=== PATIENT | male | born 1995 | race Caucasian/White ===

== ENCOUNTER 2020-03-25 13:24 | Inpatient (IN) | payer OTHER ==
[2020-03-25 15:11] VITALS: BMI 28.1
--- NOTE | 2020-03-25 15:44 | HP ---
COWS - Scale Resting Pulse: 0= [place] 80 or Below Sweatin=Flushed/Facial Moisture Restless Observation: 1= Difficult to Sit Still Pupil Size: 0= Normal to Room Light Bone or Joint Aches: 2= Severe Diffuse Aches Runny Nose/ Eye Tearin= Runny Nose/Eyes GI Upset > 30mins: 2= Nausea/Diarrhea Tremor Observation: 2= Slight Tremor Visible Yawning Observation: 2= >3x During Session Anxiety or Irritability: 2=Irritable/Anxious Goose Flesh Skin: 3=Piloerection COWS Score: 18 CIWA Score Nausea/Vomitin-Mild Nausea/No Vomiting Muscle Tremors: 3 Anxiety: 3 Agitation: 3 Paroxysmal Sweats: 3 Orientation: 0-Oriented Tacttile Disturbances: 0-None Auditory Disturbances: 0-None Visual Disturbances: 0-None Headache: 2-Mild CIWA-Ar Total Score: 15 - Admission Criteria OASAS Guidelines: Admission for Medically Managed Detox: Requires at least one of the followin. CIWA greater than 12 2. Seizures within the past 24 hours 3. Delirium tremens within the past 24 hours 4. Hallucinations within the past 24 hours 5. Acute intervention needed for co occurring medical disorder 6. Acute intervention needed for co occurring psychiatric disorder 7. Severe withdrawal that cannot be handled at a lower level of care (continued vomiting, continued diarrhea, abnormal vital signs) requiring intravenous medication and/or fluids 8. Admitting History and Physical - Primary Care Physician PCP: Dr. Herrera - Admission Chief Complaint: I am here for detox and try to stay sober History of Present Illness: Pt is a 25yr old male with a history of opioid and fentanly withdrawals here for detox and treatment. 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 (last seizure 1month ago lack of benzo use) Cardiovascular: Yes: HTN Psych: Yes: Anxiety, Depression - Past Surgical History Past Surgical History: Yes: Hernia Repair - Smoking History Smoking history: Never smoked Have you smoked in the past 12 months: No - Alcohol/Substance Use Hx Alcohol Use: No History of Substance Use: reports: Prescription - Social History Usual Living Arrangement: Yes: With Parent ADL: Independent History of Recent Travel: No Admission ROS BHS - HPI Chief Complaint: I need help and detox for my addiction Allergies/Adverse Reactions: Allergies Allergy/AdvReac Type Severity Reaction Status Date / Time codeine Allergy Intermediate Vomiting Verified 03/25/20 15:00 History of Present Illness: pt is a 25yr old male with a history of heroin, fentanly dependence seeking detox for treatment. Exam Limitations: No Limitations - Ebola screening Have you traveled outside of the country in the last 21 days: No Have you had contact with anyone from an Ebola affected area: No Have you been sick,other than usual withdrawal symptoms: No Do you have a fever: No - Review of Systems Constitutional: Chills, Diaphoresis, Night Sweats EENT: reports: Tearing, Nose Congestion Respiratory: reports: No Symptoms reported Cardiac: reports: Syncope GI: reports: Diarrhea, Nausea, Poor Appetite, Poor Fluid Intake, Indigestion : reports: No Symptoms Reported Integumentary: reports: No Symptoms Reported Neuro: reports: Headache, Seizure (last seizure one month ago d/t benzo), Tingling Hematology: reports: No Symptoms Reported Psychiatric: reports: Judgement Intact, Mood/Affect Appropiate, Orientated x3, Agitated, Anxious Other Systems: Reviewed and Negative Patient History - Patient Medical History Hx Anemia: No Hx Asthma: No Hx Chronic Obstructive Pulmonary Disease (COPD): No Hx Cancer: No Hx Cardiac Disorders: No Hx Congestive Heart Failure: No Hx Hypertension: Yes (withdrawal related) Hx Hypercholesterolemia: No Hx Pacemaker: No HX Cerebrovascular Accident: No Hx Seizures: Yes (LAST SEIZURE 1 MONTH.) Hx Dementia: No Hx Diabetes: No Hx Gastrointestinal Disorders: No Hx Liver Disease: No Hx Genitourinary Disorders: No Hx Sexually Transmitted Disorders: No Hx Renal Disease (ESRD): No Hx Thyroid Disease: No Hx Human Immunodeficiency Virus (HIV): No Hx Hepatitis C: No Hx Depression: Yes Hx Suicide Attempt: No (pt denies) Hx Bipolar Disorder: No Hx Schizophrenia: No Other Medical History: anxiety - Patient Surgical History Past Surgical History: Yes Other Surgical History: BILATERAL INGUINAL HERNIA REPAIR - PPD History Previous Implant?: Yes Documented Results: Negative w/o proof Implanted On Prior R Admission?: No PPD to be Administered?: Yes - Reproductive History Patient is a Female of Child Bearing Age (11 -55 yrs old): No - Smoking Cessation Smoking history: Never smoked Have you smoked in the past 12 months: No Hx Chewing Tobacco Use: No Initiated information on smoking cessation: No - Substance & Tx. History Hx Alcohol Use: No Hx Substance Use: Yes Substance Use Type: Heroin, Opiates Hx Substance Use Treatment: Yes (5yrs ago last detox) - Substances abused Other Other (specify): FENTANYL Substance route: Inhalation Frequency: Daily Amount used: 1-2 GRAMS Age of first use: 17 Date of last use: 03/22/20 Alcohol Substance route: Oral Frequency: Daily Amount used: 18-20 BEERS/ OR 1 PINT AND UP Age of first use: 12 Date of last use: 03/20/20 Alprazolam (Xanax) Substance route: Oral Frequency: Daily Amount used: 10-12 MG Age of first use: 9 Date of last use: 03/20/20 Admission Physical Exam [facility] - Vital Signs Vital Signs: Vital Signs - 24 hr 03/25/20 15:04 Temperature 98.3 F Pulse Rate 66 Respiratory 19 Rate Blood Pressure 136/81 - Physical General Appearance: Yes: Appropriately Dressed, Moderate Distress, Tremorous, Irritable, Sweating, Anxious HEENTM: Yes: Hearing grossly Normal, Normal Voice, Nasal Congestion, Rhinorrhea Respiratory: Yes: Lungs Clear, Normal Breath Sounds, No Respiratory Distress Neck: Yes: No masses,lesions,Nodules Breast: Yes: Within Normal Limits Cardiology: Yes: Regular Rhythm, Regular Rate, S1, S2 Abdominal: Yes: Normal Bowel Sounds, Non Tender, Soft Genitourinary: Yes: Within Normal Limits Back: Yes: Normal Inspection Musculoskeletal: Yes: full range of Motion Extremities: Yes: Normal Capillary Refill, Normal Inspection, Non-Tender, Tremors Neurological: Yes: Fully Oriented, Alert, Normal Response Integumentary: Yes: Normal Color, Diaphoresis Lymphatic: Yes: Within Normal Limits - Diagnostic (1) Alcohol dependence with withdrawal, uncomplicated Current Visit: Yes Status: Chronic (2) Opioid dependence with withdrawal Current Visit: Yes Status: Chronic (3) 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
[2020-03-25] MEDS ORDERED: BISMUTH SUBSALICYLATE 524 MG/30 ML UD PO PRN (15:48)
[2020-03-25] MEDS ORDERED: P-EPHED 60MG/TRIPROLIDI 2.5MG TABLET PO PRN (15:48)
[2020-03-25] MEDS ORDERED: ONDANSETRON *ODT* 4 MG TABLET SL PRN (15:48)
[2020-03-25] MEDS ORDERED: MENTHOL/PHENOL 1 EACH UD MM PRN (15:48)
[2020-03-25] MEDS ORDERED: IBUPROFEN 400 MG TABLET (FP) PO PRN (15:48)
[2020-03-25] MEDS ORDERED: MAGNESIUM CITRATE 300 ML BOTTLE PO PRN (15:48)
[2020-03-25] MEDS ORDERED: ACETAMINOPHEN 325 MG TABLET (FP) PO PRN (15:48)
[2020-03-25] MEDS ORDERED: MAGNESIUM HYDROX 2400MG/30ML ORAL SUSPENSION 30 ML CUP PO PRN (15:48)
[2020-03-25] MEDS ORDERED: MAG HYDROX/AL HYDROX/SIMETH 30 ML UNIT-DOSE CUP PO PRN (15:48)
[2020-03-25] MEDS ORDERED: cloNIDine HCL 0.1 MG TABLET PO PRN (15:48)
[2020-03-25] MEDS ORDERED: diazePAM 5 MG TABLET PO ONE (16:00)
[2020-03-25] MEDS ORDERED: METHADONE HCL 10 MG TABLET (FOR DETOX USE ONLY) PO ONE (16:00)
[2020-03-25] MEDS: METHOCARBAMOL 500 MG TABLET PO PRN (17:53)
[2020-03-25] MEDS: diazePAM 5 MG TABLET PO PRN (20:30)
[2020-03-25] MEDS: hydrOXYzine PAMOATE 25 MG CAPSULE (FP) PO PRN (20:30)
[2020-03-25] MEDS: THIAMINE HCL 100 MG TABLET (FP) PO SCH (21:54)
[2020-03-25] MEDS: MELATONIN 5 MG TABLETS PO SCH (21:55)
[2020-03-25] MEDS: diazePAM 5 MG TABLET PO SCH (21:56)
[2020-03-26] MEDS ORDERED: MASKS NR ONE (05:23)
[2020-03-26] MEDS: diazePAM 5 MG TABLET PO SCH ×3 (05:24→22:00)
[2020-03-26] MEDS ORDERED: METHADONE HCL 5 MG TABLET (FOR DETOX USE ONLY) ONE (08:56)
[2020-03-26] MEDS ORDERED: METHADONE HCL 10 MG TABLET (FOR DETOX USE ONLY) ONE (08:56)
[2020-03-26] MEDS ORDERED: METHADONE (DETOX) 20 MG, METHADONE (DETOX) 5 MG PO ONE (10:00)
[2020-03-26] MEDS: PRENATAL VITAMINS W/ FOLIC ACID TABLET (FP) PO SCH (10:33)
[2020-03-26] MEDS: hydrOXYzine PAMOATE 25 MG CAPSULE (FP) PO PRN ×3 (10:33→22:00)
[2020-03-26] MEDS: diazePAM 5 MG TABLET PO PRN ×2 (10:35→18:39)
[2020-03-26 10:37] LABS: HEMOGLOBIN 15.5 GM/dL (11.7-16.9); MCH 26.8 pg (25.7-33.7); MCHC 33.8 g/dl (32.0-35.9); MEAN CELL VOLUME 79.2 fl (80-96); PLATELET COUNT 466 K/MM3 (134-434); RDW 15.3 % (11.9-15.9); WHITE BLOOD COUNT 10.2 K/mm3 (4.0-10.0)
[2020-03-26 10:52] LABS: ALBUMIN 3.5 g/dl (3.4-5.0); BILIRUBIN,TOTAL 0.9 mg/dL (0.2-1); BLOOD UREA NITROGEN 15.7 mg/dL (7-18); CALCIUM 9.3 mg/dL (8.5-10.1); CREATININE 1.4 mg/dL (0.55-1.3); POTASSIUM 4.7 mmol/L (3.5-5.1); TOT PROT 7.7 g/dl (6.4-8.2)
[2020-03-26 10:53] LABS: SICKLE CELL SCREEN NEGATIVE (NEGATIVE)
--- NOTE | 2020-03-26 11:35 | CONSULT ---
[facility] Psychiatric Consult - Data Date of interview: 03/26/20 Admission source: [facility] Identifying data: Patient is a 25 year old single Citizen Of [place] male, without children, unemployed, and resides with grandmother. This is patient's first admission to detox at [facility]. Patient admitted to for opiate and benzodiazepine dependence. Substance Abuse History: - Smoking Cessation. Smoking history: Never smoked. Have you smoked in the past 12 months: No. Hx Chewing Tobacco Use: No. Initiated information on smoking cessation: No. - Substance & Tx. History. Hx Alcohol Use: No. Hx Substance Use: Yes. Substance Use Type: Heroin, Opiates. Hx Substance Use Treatment: Yes (5yrs ago last detox). - Substances abused. Other. Other (specify): FENTANYL. Substance route: Inhalation. Frequency: Daily. Amount used: 1-2 GRAMS. Age of first use: 17. Date of last use: 03/22/20. Alcohol. Substance route: Oral. Frequency: Daily. Amount used: 18-20 BEERS/ OR 1 PINT AND UP. Age of first use: 12. Date of last use: . Alprazolam (Xanax). Substance route: Oral. Frequency: Daily. Amount used: 10-12 MG. Age of first use: 9. Date of last use: 03/20/20 Medical History: Hernia repair, hypertension, seizure (withdrawal from benzo) Psychiatric History: Patient states that his first psychiatric contact was at 7 years of age at an outpatient clinic in [place], [place] due to behaviorial issues. 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 Patient reports being prescribed klonopin + other psychotropic agents until the age of 17. As an adult he reports receiving outpatient psychiatric care at [facility]. Reports most recently seeing the psychiatist two months ago and claims that he is prescribed klonopin 2mg BID + Xanac 4mg daily PRN + Wellbutrin 300mg XL daily + Adderall 30mg daily. Mr. Mane reports a diagnosis of ADHD + MDD + Anxiety disorder. No reported history of psychiatric hospitalizations and suicide attempt. At present, Mr. Mane is not interested in resuming psychotropic medications. States that he has been off medications for several weeks. Physical/Sexual Abuse/Trauma History: denies. Mental Status Exam - Mental Status Exam Alert and Oriented to: Time, Place, Person Cognitive Function: Good Patient Appearance: Well Groomed Mood: Hopeful Affect: Appropriate Patient Behavior: Appropriate, Cooperative Speech Pattern: Appropriate Voice Loudness: Normal Thought Process: Goal Oriented Hallucinations: Denies Suicidal Ideation: Denies Homicidal Ideation: Denies Insight/Judgement: Poor Sleep: Fair Appetite: Fair Muscle strength/Tone: Normal Gait/Station: Normal Psychiatric Findings - Problem List ([place] 1, 2,3) (1) Anxiety disorder Current Visit: No Status: Chronic (2) ADHD (attention deficit hyperactivity disorder) Current Visit: No Status: Chronic (3) Alcohol dependence with withdrawal, uncomplicated Current Visit: Yes Status: Acute (4) Opioid dependence with withdrawal Current Visit: Yes Status: Acute (5) Sedative withdrawal without complication Current Visit: Yes Status: Acute - Initial Treatment Plan Initial Treatment Plan: Psychoeducation provided. Detoxification in progress. Observation.
--- NOTE | 2020-03-26 16:57 | EKG ---
Test Reason : Blood Pressure : / mmHG Vent. Rate : 052 BPM Atrial Rate : 052 BPM P-R Int : 104 ms QRS Dur : 092 ms QT Int : 418 ms P-R-T Axes : 057 093 040 degrees QTc Int : 388 ms SINUS BRADYCARDIA WITH SHORT SD RIGHTWARD AXIS BORDERLINE ECG NO PREVIOUS ECGS AVAILABLE Confirmed by TOOTIE PRECIADO, VITOR ([id number]) on 03/26/2020 4:57:37 PM Referred By: Confirmed By:VITOR SOMMERS MD
--- NOTE | 2020-03-26 17:15 | PN ---
[facility] CIWA - CIWA Score Nausea/Vomitin-Mild Nausea/No Vomiting Muscle Tremors: 3 Anxiety: 3 Agitation: 3 Paroxysmal Sweats: 1-Minimal Palms Moist Orientation: 0-Oriented Tacttile Disturbances: 1-Very Mild Itch/Numbness Auditory Disturbances: 0-None Visual Disturbances: 0-None Headache: 1-Very Mild CIWA-Ar Total Score: 13 [facility]HS COWS - Scale Resting Pulse: 0= [place] 80 or Below Sweatin= No chills or Flushing Restless Observation: 1= Difficult to Sit Still Pupil Size: 1= Pupils >than Normal Bone or Joint Aches: 2= Severe Diffuse Aches Runny Nose/ Eye Tearin= Runny Nose/Eyes GI Upset > 30mins: 2= Nausea/Diarrhea Tremor Observation of Outstretched Hands: 2= Slight Tremor Visible Yawning Observation: 1= 1-2x During Session Anxiety or Irritability: 2=Irritable/Anxious Goose Flesh Skin: 0=Smooth Skin COWS Score: 13 [facility] Progress Note (SOAP) Subjective: alert,irritable,anxious,interrupted sleep,tremor,pain in the body and back,nausea Objective: 03/26/20 17:13 Laboratory Last Values WBC 10.2 K/mm3 (4.0-10.0) H 03/26/20 08:00 RBC 5.80 M/mm3 (4.00-5.60) H 03/26/20 08:00 Hgb 15.5 GM/dL (11.7-16.9) 03/26/20 08:00 Hct 46.0 % (35.4-49) 03/26/20 08:00 MCV 79.2 fl (80-96) L 03/26/20 08:00 MCH 26.8 pg (25.7-33.7) 03/26/20 08:00 MCHC 33.8 g/dl (32.0-35.9) 03/26/20 08:00 RDW 15.3 % (11.9-15.9) 03/26/20 08:00 Plt Count 466 K/MM3 (134-434) H 03/26/20 08:00 MPV 8.0 fl (7.5-11.1) 03/26/20 08:00 Sickle Cell Screen Negative (NEGATIVE) 03/26/20 08:00 Sodium 138 mmol/L (136-145) 03/26/20 08:00 Potassium 4.7 mmol/L (3.5-5.1) 03/26/20 08:00 Chloride 100 mmol/L (98-107) 03/26/20 08:00 Carbon Dioxide 31 mmol/L (21-32) 03/26/20 08:00 Anion Gap 8 MMOL/L (8-16) 03/26/20 08:00 BUN 15.7 mg/dL (7-18) 03/26/20 08:00 Creatinine 1.4 mg/dL (0.55-1.3) H 03/26/20 08:00 Est GFR (CKD-EPI)AfAm 79.80 03/26/20 08:00 Est GFR (CKD-EPI)NonAf 68.85 03/26/20 08:00 Random Glucose 108 mg/dL (74-106) H 03/26/20 08:00 Calcium 9.3 mg/dL (8.5-10.1) 03/26/20 08:00 Total Bilirubin 0.9 mg/dL (0.2-1) 03/26/20 08:00 AST 49 U/L (15-37) H 03/26/20 08:00 ALT 94 U/L (13-61) H 03/26/20 08:00 Alkaline Phosphatase 68 U/L (45-117) 03/26/20 08:00 Total Protein 7.7 g/dl (6.4-8.2) 03/26/20 08:00 Albumin 3.5 g/dl (3.4-5.0) 03/26/20 08:00 Syphilis Serology Non-reactive (NONREACTIVE) 03/26/20 08:00 Assessment: 03/26/20 17:14 withdrawal symptom Plan: continue detox methadone and valium
[2020-03-26] MEDS: METHOCARBAMOL 500 MG TABLET PO PRN (18:39)
[2020-03-26] MEDS: MELATONIN 5 MG TABLETS PO SCH (22:00)
[2020-03-26] MEDS: THIAMINE HCL 100 MG TABLET (FP) PO SCH (22:00)
[2020-03-27] MEDS: diazePAM 5 MG TABLET PO SCH ×2 (05:31→17:55)
[2020-03-27] MEDS ORDERED: METHADONE HCL 10 MG TABLET (FOR DETOX USE ONLY) PO ONE (10:00)
[2020-03-27] MEDS: PRENATAL VITAMINS W/ FOLIC ACID TABLET (FP) PO SCH (10:36)
[2020-03-27] MEDS: diazePAM 5 MG TABLET PO PRN ×3 (10:40→22:50)
[2020-03-27] MEDS: METHOCARBAMOL 500 MG TABLET PO PRN ×2 (10:40→17:58)
--- NOTE | 2020-03-27 14:03 | PN ---
[facility] CIWA - CIWA Score Nausea/Vomitin-Mild Nausea/No Vomiting Muscle Tremors: 2 Anxiety: 2 Agitation: 2 Paroxysmal Sweats: No Perspiration Orientation: 0-Oriented Tacttile Disturbances: 1-Very Mild Itch/Numbness Auditory Disturbances: 0-None Visual Disturbances: 0-None Headache: 2-Mild CIWA-Ar Total Score: 10 [facility]HS COWS - Scale Resting Pulse: 1= [place] 81-100 Sweatin= No chills or Flushing Restless Observation: 0= Sits Still Pupil Size: 1= Pupils >than Normal Bone or Joint Aches: 2= Severe Diffuse Aches Runny Nose/ Eye Tearin= Runny Nose/Eyes GI Upset > 30mins: 2= Nausea/Diarrhea Tremor Observation of Outstretched Hands: 2= Slight Tremor Visible Yawning Observation: 0= None Anxiety or Irritability: 2=Irritable/Anxious Goose Flesh Skin: 0=Smooth Skin COWS Score: 12 [facility] Progress Note (SOAP) Subjective: alert,irritable,anxious,interrupted sleep,nusea,tremor,pain in the body and back Objective: 03/27/20 16:12 Vital Signs Temperature 97.1 F L 03/27/20 12:37 Pulse Rate 65 03/27/20 12:37 Respiratory Rate 20 03/27/20 12:37 Blood Pressure 136/82 03/27/20 12:37 O2 Sat by Pulse Oximetry (%) 98 03/27/20 12:37 Assessment: 03/27/20 16:12 withdrawal symptom Plan: continue detox methadone and valium regimen,encourage oral fluid
[2020-03-27] MEDS: hydrOXYzine PAMOATE 25 MG CAPSULE (FP) PO PRN ×2 (17:58→22:51)
[2020-03-27] MEDS: THIAMINE HCL 100 MG TABLET (FP) PO SCH (22:47)
[2020-03-27] MEDS: MELATONIN 5 MG TABLETS PO SCH (22:47)
[2020-03-28] MEDS ORDERED: diazePAM 5 MG TABLET PO ONE (06:00)
--- NOTE | 2020-03-28 09:47 | PN ---
[facility] CIWA - CIWA Score Nausea/Vomitin-No Nausea/No Vomiting Muscle Tremors: None Anxiety: 2 Agitation: 0-Normal Activity Paroxysmal Sweats: 3 Orientation: 0-Oriented Tacttile Disturbances: 0-None Auditory Disturbances: 0-None Visual Disturbances: 0-None Headache: 0-None Present CIWA-Ar Total Score: 5 BHS COWS - Scale Resting Pulse: 0= [place] 80 or Below Sweatin= Chills/Flushing Restless Observation: 1= Difficult to Sit Still Pupil Size: 0= Normal to Room Light Bone or Joint Aches: 2= Severe Diffuse Aches Runny Nose/ Eye Tearin= None GI Upset > 30mins: 0= None Tremor Observation of Outstretched Hands: 0= None Yawning Observation: 1= 1-2x During Session Anxiety or Irritability: 2=Irritable/Anxious Goose Flesh Skin: 0=Smooth Skin COWS Score: 7 S Progress Note (SOAP) Subjective: c/o sweats, anxiety, muscle aches, and irritability. Objective: Vital Signs 03/28/20 03/28/20 06:35 08:43 Temperature 97.7 F 97.3 F L Pulse Rate 51 L 54 L Respiratory 18 17 Rate Blood Pressure 111/72 132/85 O2 Sat by Pulse 100 97 Oximetry (%) Laboratory Last Values WBC 10.2 K/mm3 (4.0-10.0) H 03/26/20 08:00 RBC 5.80 M/mm3 (4.00-5.60) H 03/26/20 08:00 Hgb 15.5 GM/dL (11.7-16.9) 03/26/20 08:00 Hct 46.0 % (35.4-49) 03/26/20 08:00 MCV 79.2 fl (80-96) L 03/26/20 08:00 MCH 26.8 pg (25.7-33.7) 03/26/20 08:00 MCHC 33.8 g/dl (32.0-35.9) 03/26/20 08:00 RDW 15.3 % (11.9-15.9) 03/26/20 08:00 Plt Count 466 K/MM3 (134-434) H 03/26/20 08:00 MPV 8.0 fl (7.5-11.1) 03/26/20 08:00 Sickle Cell Screen Negative (NEGATIVE) 03/26/20 08:00 Sodium 138 mmol/L (136-145) 03/26/20 08:00 Potassium 4.7 mmol/L (3.5-5.1) 03/26/20 08:00 Chloride 100 mmol/L (98-107) 03/26/20 08:00 Carbon Dioxide 31 mmol/L (21-32) 03/26/20 08:00 Anion Gap 8 MMOL/L (8-16) 03/26/20 08:00 BUN 15.7 mg/dL (7-18) 03/26/20 08:00 Creatinine 1.4 mg/dL (0.55-1.3) H 03/26/20 08:00 Est GFR (CKD-EPI)AfAm 79.80 03/26/20 08:00 Est GFR (CKD-EPI)NonAf 68.85 03/26/20 08:00 Random Glucose 108 mg/dL (74-106) H 03/26/20 08:00 Calcium 9.3 mg/dL (8.5-10.1) 03/26/20 08:00 Total Bilirubin 0.9 mg/dL (0.2-1) 03/26/20 08:00 AST 49 U/L (15-37) H 03/26/20 08:00 ALT 94 U/L (13-61) H 03/26/20 08:00 Alkaline Phosphatase 68 U/L (45-117) 03/26/20 08:00 Total Protein 7.7 g/dl (6.4-8.2) 03/26/20 08:00 Albumin 3.5 g/dl (3.4-5.0) 03/26/20 08:00 Syphilis Serology Non-reactive (NONREACTIVE) 03/26/20 08:00 COVID-19 (SELAM) Not detected (Not Detected) 03/26/20 08:40 Labs noted. Assessment: 03/28/20 09:47 AOX3, in no acute respiratory distress. Full ROM, ambulating in the unit. Withdrawal symptoms. Plan: continue detox.
[2020-03-28] MEDS ORDERED: METHADONE HCL 5 MG TABLET (FOR DETOX USE ONLY) ONE (09:49)
[2020-03-28] MEDS ORDERED: METHADONE HCL 10 MG TABLET (FOR DETOX USE ONLY) ONE (09:49)
[2020-03-28] MEDS ORDERED: METHADONE (DETOX) 10 MG, METHADONE (DETOX) 5 MG PO ONE (10:00)
[2020-03-28] MEDS: PRENATAL VITAMINS W/ FOLIC ACID TABLET (FP) PO SCH (10:43)
[2020-03-28] MEDS: ACETAMINOPHEN 325 MG TABLET (FP) PO PRN (10:45)
[2020-03-28] MEDS: METHOCARBAMOL 500 MG TABLET PO PRN ×2 (10:45→19:03)
[2020-03-28] MEDS: hydrOXYzine PAMOATE 25 MG CAPSULE (FP) PO PRN (19:02)
[2020-03-28] MEDS: MELATONIN 5 MG TABLETS PO SCH (22:54)
[2020-03-28] MEDS: THIAMINE HCL 100 MG TABLET (FP) PO SCH (22:54)
[2020-03-29] MEDS ORDERED: METHADONE HCL 10 MG TABLET (FOR DETOX USE ONLY) PO ONE (10:00)
--- NOTE | 2020-03-29 10:13 | PN ---
[facility] CIWA - CIWA Score Nausea/Vomitin-Mild Nausea/No Vomiting Muscle Tremors: 1-None Visible, but [place] Anxiety: 1-Mildly Anxious Agitation: 0-Normal Activity Paroxysmal Sweats: No Perspiration Orientation: 0-Oriented Tacttile Disturbances: 0-None Auditory Disturbances: 0-None Visual Disturbances: 0-None Headache: 1-Very Mild CIWA-Ar Total Score: 4 S COWS - Scale Resting Pulse: 2= [place] 101-120 Sweatin= No chills or Flushing Restless Observation: 0= Sits Still Pupil Size: 0= Normal to Room Light Bone or Joint Aches: 0= None Runny Nose/ Eye Tearin= None GI Upset > 30mins: 0= None Tremor Observation of Outstretched Hands: 1= Tremor [place], Not Seen Yawning Observation: 0= None Anxiety or Irritability: 1=Feels Anxious/Irritable Goose Flesh Skin: 0=Smooth Skin COWS Score: 4 S Progress Note (SOAP) Subjective: Patient Name: Jj Mane Date: 1995 Address: [address] [place] [address] Sex: Male Rx Written Rx Dispensed Drug Quantity Days Supply Prescriber Name Payment Method Dispenser 01/28/2020 03/01/2020 buprenorphine 8 mg tablet sl 60 30 Schwartz, [place] Medicaid [facility] #[id number] 02/25/2020 02/25/2020 clonazepam 1 mg tablet 60 30 Schwartz, [place] Medicaid [facility] #[id number] 02/25/2020 02/25/2020 alprazolam 2 mg tablet 30 30 Schwartz, [place] Medicaid [facility] #[id number] 01/28/2020 02/20/2020 dextroamp-amphetamin 10 mg tab 90 30 Schwartz, [place] Medicaid [facility] #[id number] 01/28/2020 01/28/2020 clonazepam 1 mg tablet 60 30 Schwartz, [place] Medicaid [facility] #[id number] 01/28/2020 01/28/2020 alprazolam 2 mg tablet 30 30 Schwartz, [place] [facility] #[id number] 01/06/2020 01/23/2020 buprenorphine 8 mg tablet sl 60 30 Schwartz, [place] Medicaid [facility] #[id number] 01/06/2020 01/23/2020 dextroamp-amphetamin 10 mg tab 90 30 Schwartz, [place] Medicaid [facility] #[id number] 01/06/2020 01/19/2020 alprazolam 1 mg tablet 45 30 Schwartz, [place] Medicaid [facility] #[id number] 01/06/2020 01/09/2020 clonazepam 2 mg tablet 60 30 Schwartz, [place] Medicaid [facility] #[id number] 12/09/2019 12/25/2019 buprenorphine 8 mg tablet sl 60 30 Schwartz, [place] Medicaid [facility] #[id number] 12/09/2019 12/25/2019 dextroamp-amphetamin 10 mg tab 90 30 Schwartz, [place] Medicaid [facility] #[id number] 12/09/2019 12/20/2019 alprazolam 1 mg tablet 45 30 Schwartz, [place] Medicaid [facility] #[id number] 12/09/2019 12/11/2019 clonazepam 2 mg tablet 60 30 Schwartz, [place] Medicaid [facility] #[id number] 11/11/2019 11/28/2019 dextroamp-amphetamin 10 mg tab 90 30 Schwartz, [place] Medicaid [facility] #[id number] 11/11/2019 11/27/2019 buprenorphine 8 mg tablet sl 60 30 Schwartz, [place] Medicaid [facility] #[id number] 11/11/2019 11/20/2019 alprazolam 1 mg tablet 45 30 Schwartz, [place] [facility] #[id number] 11/11/2019 11/14/2019 clonazepam 2 mg tablet 60 30 Schwartz, [place] [facility] #[id number] 10/18/2019 10/28/2019 dextroamp-amphetamin 10 mg tab 90 30 Schwartz, [place] [facility] #[id number] 10/18/2019 10/23/2019 buprenorphine 8 mg tablet sl 60 30 Schwartz, [place] [facility] #[id number] 10/18/2019 10/22/2019 alprazolam 1 mg tablet 45 30 Schwartz, [place] [facility] #[id number] 10/18/2019 10/18/2019 clonazepam 2 mg tablet 60 30 Schwartz, [place] [facility] #[id number] 09/25/2019 09/27/2019 dextroamp-amphetamin 10 mg tab 90 30 [facility] #[id number] 09/25/2019 09/25/2019 alprazolam 1 mg tablet 120 30 [facility] #[id number] 09/25/2019 09/25/2019 clonazepam 2 mg tablet 12 6 [facility] #[id number] 09/25/2019 09/25/2019 buprenorphine 8 mg tablet sl 60 30 [facility] #[id number] 08/23/2019 08/29/2019 alprazolam 1 mg tablet 120 30 [facility] #[id number] 08/26/2019 08/27/2019 dextroamp-amphetamin 10 mg tab 90 30 [facility] #[id number] 08/23/2019 08/26/2019 buprenorphine 8 mg tablet sl 60 30 [facility] #[id number] 07/23/2019 08/02/2019 alprazolam 1 mg tablet 120 30 Schwartz, [place] [facility] #[id number] 07/23/2019 07/26/2019 dextroamp-amphetamin 10 mg tab 120 30 Schwartz, [place] [facility] #[id number] 07/23/2019 07/24/2019 buprenorphine 8 mg tablet sl 60 30 Schwartz, [place] [facility] #[id number] 06/27/2019 07/03/2019 alprazolam 1 mg tablet 120 30 Schwartz, [place] [facility] #[id number] 06/27/2019 06/29/2019 dextroamp-amphetamin 10 mg tab 120 30 Schwartz, [place] [facility] #[id number] 05/28/2019 06/13/2019 buprenorphine 8 mg tablet sl 60 30 Schwartz, [place] [facility] #[id number] 05/28/2019 06/07/2019 dextroamp-amphetamin 10 mg tab 100 25 Schwartz, [place] [facility] #[id number] 05/28/2019 06/03/2019 alprazolam 1 mg tablet 120 30 Schwartz, [place] [facility] #[id number] 05/02/2019 05/16/2019 buprenorphine 8 mg tablet sl 60 30 Schwartz, [place] [facility] #[id number] 05/02/2019 05/11/2019 dextroamp-amphetamin 10 mg tab 120 30 Schwartz, [place] [facility] #[id number] 05/02/2019 05/04/2019 alprazolam 1 mg tablet 120 30 Schwartz, [place] [facility] #[id number] 04/05/2019 04/17/2019 buprenorphine 8 mg tablet sl 60 30 Schwartz, [place] [facility] #[id number] 04/11/2019 04/11/2019 dextroamp-amphetamin 10 mg tab 120 30 Schwartz, [place] [facility] #[id number] 04/06/2019 04/06/2019 dextroamp-amphetamin 10 mg tab 20 5 Schwartz, [place] [facility] #[id number] 04/05/2019 04/05/2019 alprazolam 1 mg tablet 120 30 Schwartz, [place] [facility] #[id number] Top of Form 1 Bottom of Form 1 Report Suspicious Activity Send Questions/Comments Substance Use Disorder Treatment Click the Report Suspicious Activity button to report information related to controlled substance suspicious activity to the [employer]. Click the Send Questions/Comments button to send questions about this report to the [employer], or call . Click the Substance Use Disorder Treatment button to go to the Office of Addiction Services and Supports website, www.[place].gov or call 1-507.712.3623. 2017 [facility] Department of Health -[facility] [employer] 03/29/2020 10:08 . 25 years old male was admitted on 03/25/20 for alcohol benzo opiate withdrawal sx management treating with valium and methadone regiments requests to be seen by a psychiatrist for clonopine mr mane was receiving monthly xanax 2 mg po od last filled 02/25/20 clonopine 1 mg po bid last filled 02/25/20 and suboxone 8-2mg po bid last filled 01/28/20 mr mane prefers returning to the program and continues xanax klonopin suboxone Objective: 03/29/20 10:18 Vital Signs - 24 hr 03/28/20 03/28/20 03/28/20 12:40 16:35 20:38 Temperature 98.3 F 97.4 F L 97.3 F L Pulse Rate 66 56 L 64 Respiratory 18 16 18 Rate Blood Pressure 123/76 137/78 124/77 O2 Sat by Pulse 100 99 Oximetry (%) 03/29/20 03/29/20 03/29/20 05:17 07:02 08:52 Temperature 97.1 F L 97.1 F L Pulse Rate 50 L 66 103 H Respiratory 16 16 20 Rate Blood Pressure 85/47 L 123/77 136/63 O2 Sat by Pulse 99 Oximetry (%) Laboratory Tests 03/26/20 03/26/20 03/26/20 08:00 08:00 08:00 WBC 10.2 H RBC 5.80 H Hgb 15.5 Hct 46.0 MCV 79.2 L MCH 26.8 MCHC 33.8 RDW 15.3 Plt Count 466 H MPV 8.0 Sickle Cell Screen Negative Sodium 138 Potassium 4.7 Chloride 100 Carbon Dioxide 31 Anion Gap 8 BUN 15.7 Creatinine 1.4 H Est GFR (CKD-EPI)AfAm 79.80 Est GFR (CKD-EPI)NonAf 68.85 Random Glucose 108 H Calcium 9.3 Total Bilirubin 0.9 AST 49 H ALT 94 H Alkaline Phosphatase 68 Total Protein 7.7 Albumin 3.5 Syphilis Serology Non-reactive COVID-19 ([facility]) 03/26/20 08:40 WBC RBC Hgb Hct MCV MCH MCHC RDW Plt Count MPV Sickle Cell Screen Sodium Potassium Chloride Carbon Dioxide Anion Gap BUN Creatinine Est GFR (CKD-EPI)AfAm Est GFR (CKD-EPI)NonAf Random Glucose Calcium Total Bilirubin AST ALT Alkaline Phosphatase Total Protein Albumin Syphilis Serology COVID-19 ([facility]) Not detected lab noted Assessment: 03/29/20 10:18 alcohol benzo opiate withdrawal Plan: valium and methadone regiments
[2020-03-29] MEDS: ACETAMINOPHEN 325 MG TABLET (FP) PO PRN (10:14)
[2020-03-29] MEDS: METHOCARBAMOL 500 MG TABLET PO PRN (10:14)
[2020-03-29] MEDS: PRENATAL VITAMINS W/ FOLIC ACID TABLET (FP) PO SCH (10:15)
[2020-03-29] MEDS: hydrOXYzine PAMOATE 25 MG CAPSULE (FP) PO PRN ×2 (10:17→14:46)
[2020-03-29] MEDS: THIAMINE HCL 100 MG TABLET (FP) PO SCH (23:15)
[2020-03-29] MEDS: MELATONIN 5 MG TABLETS PO SCH (23:15)
[2020-03-29 23:23] VITALS: PULSE 57
[2020-03-30] MEDS ORDERED: METHADONE HCL 5 MG TABLET (FOR DETOX USE ONLY) PO ONE (06:00)
[2020-03-30] MEDS: METHOCARBAMOL 500 MG TABLET PO PRN (06:34)
[2020-03-30] MEDS: hydrOXYzine PAMOATE 25 MG CAPSULE (FP) PO PRN (06:34)
[2020-03-30 06:44] VITALS: BP 116/57; TEMP 98.4
--- NOTE | 2020-03-30 08:56 | PN ---
[facility] CIWA - CIWA Score Nausea/Vomitin-No Nausea/No Vomiting Muscle Tremors: None Anxiety: 1-Mildly Anxious Agitation: 0-Normal Activity Paroxysmal Sweats: No Perspiration Orientation: 0-Oriented Tacttile Disturbances: 0-None Auditory Disturbances: 0-None Visual Disturbances: 0-None Headache: 0-None Present CIWA-Ar Total Score: 1 [facility] COWS - Scale Resting Pulse: 0= [place] 80 or Below Sweatin= No chills or Flushing Restless Observation: 0= Sits Still Pupil Size: 0= Normal to Room Light Bone or Joint Aches: 0= None Runny Nose/ Eye Tearin= None GI Upset > 30mins: 0= None Tremor Observation of Outstretched Hands: 0= None Yawning Observation: 0= None Anxiety or Irritability: 1=Feels Anxious/Irritable Goose Flesh Skin: 0=Smooth Skin COWS Score: 1 [facility] Progress Note (SOAP) Subjective: alert,no complaint Objective: 03/30/20 08:54 Vital Signs Temperature 98.4 F 03/30/20 05:25 Pulse Rate 57 L 03/30/20 05:25 Respiratory Rate 20 03/30/20 05:25 Blood Pressure 116/57 L 03/30/20 05:25 O2 Sat by Pulse Oximetry (%) 100 03/30/20 05:25 Assessment: 03/30/20 08:55 detox completed,no withdrawal symptom Plan: discahrge today,follow up with after care program as arrangement
--- NOTE | 2020-03-30 09:07 | DS ---
[facility] Detox Discharge Summary Admission Date: 03/25/20 Discharge Date: 03/30/20 - History Present History: Alcohol Dependence, Opioid Dependence, Sedative Dependence Additional Comments: alert,oriented x 3 lung clear on auscultation bilaterally ambulation on the unit abdomen soft,no distension,no pain stable for discharge today,no withdrawal symptom follow up with after care program as arrangement Jsoe BOWEN on monday03/31/2020 at 9.30 am total time spending on discharge 35 minutes Pertinent Past History: adhd anxiety - Physical Exam Results Vital Signs: Vital Signs Temperature 98.4 F 03/30/20 05:25 Pulse Rate 57 L 03/30/20 05:25 Respiratory Rate 20 03/30/20 05:25 Blood Pressure 116/57 L 03/30/20 05:25 O2 Sat by Pulse Oximetry (%) 100 03/30/20 05:25 Pertinent Admission Physical Exam Findings: withdrawal signs and symptom Laboratory Last Values WBC 10.2 K/mm3 (4.0-10.0) H 03/26/20 08:00 RBC 5.80 M/mm3 (4.00-5.60) H 03/26/20 08:00 Hgb 15.5 GM/dL (11.7-16.9) 03/26/20 08:00 Hct 46.0 % (35.4-49) 03/26/20 08:00 MCV 79.2 fl (80-96) L 03/26/20 08:00 MCH 26.8 pg (25.7-33.7) 03/26/20 08:00 MCHC 33.8 g/dl (32.0-35.9) 03/26/20 08:00 RDW 15.3 % (11.9-15.9) 03/26/20 08:00 Plt Count 466 K/MM3 (134-434) H 03/26/20 08:00 MPV 8.0 fl (7.5-11.1) 03/26/20 08:00 Sickle Cell Screen Negative (NEGATIVE) 03/26/20 08:00 Sodium 138 mmol/L (136-145) 03/26/20 08:00 Potassium 4.7 mmol/L (3.5-5.1) 03/26/20 08:00 Chloride 100 mmol/L (98-107) 03/26/20 08:00 Carbon Dioxide 31 mmol/L (21-32) 03/26/20 08:00 Anion Gap 8 MMOL/L (8-16) 03/26/20 08:00 BUN 15.7 mg/dL (7-18) 03/26/20 08:00 Creatinine 1.4 mg/dL (0.55-1.3) H 03/26/20 08:00 Est GFR (CKD-EPI)AfAm 79.80 03/26/20 08:00 Est GFR (CKD-EPI)NonAf 68.85 03/26/20 08:00 Random Glucose 108 mg/dL (74-106) H 03/26/20 08:00 Calcium 9.3 mg/dL (8.5-10.1) 03/26/20 08:00 Total Bilirubin 0.9 mg/dL (0.2-1) 03/26/20 08:00 AST 49 U/L (15-37) H 03/26/20 08:00 ALT 94 U/L (13-61) H 03/26/20 08:00 Alkaline Phosphatase 68 U/L (45-117) 03/26/20 08:00 Total Protein 7.7 g/dl (6.4-8.2) 03/26/20 08:00 Albumin 3.5 g/dl (3.4-5.0) 03/26/20 08:00 Syphilis Serology Non-reactive (NONREACTIVE) 03/26/20 08:00 COVID-19 ([facility]) Not detected (Not Detected) 03/26/20 08:40 Vital Signs Temperature 98.4 F 03/30/20 05:25 Pulse Rate 57 L 03/30/20 05:25 Respiratory Rate 20 03/30/20 05:25 Blood Pressure 116/57 L 03/30/20 05:25 O2 Sat by Pulse Oximetry (%) 100 03/30/20 05:25 - Treatment Hospital Course: Detox Protocol Followed, Detoxed Safely, Responded well, Discharged Condition Good Patient has Accepted a Rehab Referral to: declined - Medication Discharge Medications: Ambulatory Orders Naloxone HCl [Narcan] 4 mg NS ASDIR PRN #1 spray 03/29/20 - Diagnosis (1) Opioid dependence with withdrawal Current Visit: Yes Status: Acute (2) Alcohol dependence with withdrawal, uncomplicated Current Visit: Yes Status: Acute (3) Sedative withdrawal without complication Current Visit: Yes Status: Acute (4) ADHD (attention deficit hyperactivity disorder) Current Visit: No Status: Chronic - AMA Did Patient Leave Against Medical Advice: No
[2020-03-30] MEDS: PRENATAL VITAMINS W/ FOLIC ACID TABLET (FP) PO SCH (09:39)
== END 2020-03-30 09:50 | disposition home or self-care (01) | DRG 773 ==
LOC: YASAS 13:24 → Y3N 15:31
PROVIDERS: ADMIT Allergy & Immunology; ATTEND Allergy & Immunology
PROC: HZ2ZZZZ Detoxification Services for Substance Abuse Treatment (ICD-10-PCS; principal; 2020-03-25)
DX: F10.230 Alcohol dependence with withdrawal, uncomplicated (principal); F11.23 Opioid dependence with withdrawal; F13.230 Sedative, hypnotic or anxiolytic dependence with withdrawal, uncomplicated; F41.9 Anxiety disorder, unspecified; F90.9 Attention-deficit hyperactivity disorder, unspecified type; G40.509 Epileptic seizures related to external causes, not intractable, without status epilepticus; I10 Essential (primary) hypertension; Z98.890 Other specified postprocedural states; Z88.5 Allergy status to narcotic agent
CPT/HCPCS: 36415; 80053; 85027; 85660; 86780; 93005; 93010; Q0162; U0003